=== PATIENT | female | born 1960 | race Caucasian/White ===

== ENCOUNTER 2016-09-07 09:54 | Day surgery (SDC) | payer BC ==
[2016-09-06 10:36] VITALS: BMI 27.3
--- NOTE | 2016-09-07 09:45 | HP ---
History & Physical Update - History History: No Change - Physical Physical: No Change - Assessment Assessment: No Change - Plan Plan: No Change
[2016-09-07] MEDS ORDERED: MIDAZOLAM HCL 2 MG/2 ML SINGLE DOSE VIAL ONE (11:53)
[2016-09-07] MEDS ORDERED: ceFAZolin SODIUM 1 GM VIAL ONE (11:53)
[2016-09-07] MEDS ORDERED: DEXAMETHASONE SOD PHOSPHATE 4 MG/1 ML VIAL ONE (11:53)
[2016-09-07] MEDS ORDERED: PROPOFOL 20 ML ONE ×2 (11:53→13:49)
[2016-09-07] MEDS ORDERED: SODIUM CHLORIDE 0.9% P/F 10 ML VIAL IJ ONE (11:53)
[2016-09-07] MEDS ORDERED: KETOROLAC TROMETHAMINE 30 MG/1 ML VIAL ONE (11:53)
[2016-09-07] MEDS ORDERED: ceFAZolin SODIUM 1 GM VIAL IVPB ONE (12:43)
[2016-09-07] MEDS ORDERED: GLYCOPYRROLATE 0.2 MG/1 ML VIAL ONE (13:26)
[2016-09-07] MEDS ORDERED: NEOSTIGMINE METHYLSULFATE 0.5 MG/ML - 10 ML MDV ONE (13:26)
[2016-09-07] MEDS ORDERED: BUPIVACAINE HCL/PF 0.5% (5MG/ML) 10 ML VIAL IJ ONE (13:55)
--- NOTE | 2016-09-07 14:21 | OP ---
Operative Note - Note: Operative Date: 09/07/16 Pre-Operative Diagnosis: Incarcerated ventral hernia. Operation: Repair of incarcerated ventral hernia with ventrolex lite mesh. Findings: Large 2.5 cm. defect below the umbilicus, with herniated omentum and fat. Post-Operative Diagnosis: Same as Pre-op Surgeon: Pat Spangler Anesthesiologist/MANAGER HIGHWAY: Clint Hernández Anesthesia: General (shun) Specimens Removed: Hernial sac with fat and omentum. Estimated Blood Loss (mls): 10 Operative Report Dictated: Yes
[2016-09-07] MEDS ORDERED: PROMETHAZINE HCL 25 MG/1 ML VIAL IVPUSH PRN (14:24)
[2016-09-07] MEDS ORDERED: oxyCODONE HCL 5 MG TABLET PO PRN (14:24)
[2016-09-07] MEDS ORDERED: ONDANSETRON 4 MG/2 ML VIAL IVPUSH PRN (14:24)
[2016-09-07] MEDS ORDERED: ONDANSETRON 4 MG/2 ML VIAL ONE (14:32)
[2016-09-07 15:47] VITALS: TEMP 99
--- NOTE | 2016-09-07 15:50 | OP ---
DATE OF OPERATION: 09/07/2016 PREOPERATIVE DIAGNOSIS: Incarcerated ventral hernia. PREOPERATIVE DIAGNOSIS: Incarcerated ventral hernia. OPERATIVE PROCEDURE: Repair of incarcerated ventral hernia with Ventralight mesh. SURGEON: Jorge Spangler MD ANESTHESIA: General anesthesia. OPERATIVE DESCRIPTION: This 56-year-old woman had a lump above the umbilicus which was painful. Patient was brought in for repair of the hernia. Risks, benefits, and complications were discussed with the patient. A vertical midline incision was made above and below the umbilicus. After time-out was called, patient was given 1 g of Ancef. The incision was deepened through the skin and subcutaneous tissue. The linea alba was defined above and below, 2 defects in the midline. This was fairly larger, greater than 2.5 cm in diameter. The subcutaneous fat and skin were beyond the edges of the defect circumferentially over the anterior rectus sheath above and below the umbilicus. The dissection was carried for up to 3-4 cm away from the edge of the defect. Once this was done, the defect was well defined, and there was a sac, which was wide, with omentum and fat within the sac. The sac was very well defined, open, and the sac was excised at the level of the abdominal wall. The specimen was sent to Pathology. The sac was then sutured with 3-0 Vicryl sutures. The peritoneum was then from the undersurface of the abdominal wall circumferentially on the defect for about 3-4 cm. Once this was done, Ventralight mesh of medium size, 6 cm in diameter, was introduced through the defect and placed in via the abdominal wall. This was anchored with 2-0 Prolene sutures in four corners, one above and below the defect, another on either side of the midline. The Prolene suture was passed through the abdominal wall about 2 cm away from the edge of the defect, brought through the defect, brought outwardly with the mesh through and through, and then was reintroduced through the defect and brought out through the abdominal wall. Four such sutures were obtained, one above the defect, another below the defect, and two others on either side of the defect. The Prolene suture was tied over the abdominal wall, holding the mesh on the undersurface of the abdominal wall. The knots were fastened on either side of the midline. The Prolene ribbon was then cut about 3 cm from the edge of the abdominal wall, and the Prolene suture holding the mesh on the undersurface of abdominal wall superiorly and inferiorly was brought through the ribbon, and the knot was fastened. Thus, the abdominal wall was sandwiched between the Prolene suture and the Prolene holding the mesh at the undersurface of the abdominal wall, and the Prolene ribbon over the abdominal wall. The defect was adequately repaired with enough overlay of Prolene beyond the edge of the defect. Additionally 3-0 Vicryl sutures were obtained holding the Prolene ribbon to the edge of the defect. The wound was irrigated. The subcutaneous fat was approximated with buried interrupted 3-0 Vicryl sutures. The umbilicus was brought down and sutured to the defect with interrupted 3-0 Vicryl sutures. The skin was approximated with continuous 4-0 Biosyn sutures in a running subcuticular fashion. Steri-Strips were placed across the incision, and sterile dressings were placed. Marcaine 0.5% was injected into the wound. Estimated blood loss was less than 10 mL. Patient tolerated the procedure well, was extubated and sent to the recovery room in satisfactory and stable condition. Rohit [id number]
[2016-09-07 16:33] VITALS: BP 127/84; PULSE 70
--- NOTE | 2016-09-11 13:45 | PATH ---
Surgical Pathology Report Patient Name: ANGELICA CARTAGENA [facility]. Rec. #: [id number] /Age/Gender: 1960 (Age: 56) / F Account: [id number] Location: [facility] SURGICAL Taken: 09/07/2016 Received: 09/10/2016 Reported: 09/11/2016 Physicians: Jorge Spangler M.D. Specimen(s) Received HERNIA SAC Clinical History Ventral hernia Final Diagnosis HERNIA SAC, VENTRAL HERNIA REPAIR: BENIGN FIBROMEMBRANOUS AND FIBROADIPOSE TISSUE CONSISTENT WITH HERNIA SAC. Electronically Signed Lui Ferguson M.D. Gross Description Received in formalin labeled "hernia sac" is a 3.7 x 2.5 x 2.0 cm bolaños-berg portion of fibromembranous tissue with attached fat, consistent with a hernia sac. Professional System Administrator sections are submitted in one cassette. /09/10/201609/10/2016
== END 2016-09-07 16:46 | disposition home or self-care (01) ==
LOC: JASU-SURG 09:54
PROVIDERS: ATTEND Specialist
PROC: 0WUF0JZ Supplement Abdominal Wall with Synthetic Substitute, Open Approach (ICD-10-PCS; principal; 2016-09-07 11:30)
DX: K43.6 Other and unspecified ventral hernia with obstruction, without gangrene (principal)
CPT/HCPCS: 88302-TC; 94760

== ENCOUNTER 2018-01-15 10:02 | Emergency (ER) | payer BC ==
[2018-01-15 10:14] VITALS: BP 145/69; PULSE 75; TEMP 98.6; BMI 26.7
[2018-01-15] MEDS ORDERED: KETOROLAC TROMETHAMINE 60 MG/2 ML VIAL IM ONE (11:20)
[2018-01-15] MEDS ORDERED: KETOROLAC TROMETHAMINE 60 MG/2 ML VIAL ONE (11:23)
--- NOTE | 2018-01-15 11:32 | PDOC ---
History of Present Illness - General Chief Complaint: Back Pain Stated Complaint: BACK PAIN Time Seen by Provider: 01/15/18 10:57 History Source: Patient - History of Present Illness Pain Location: reports: other (R gluteus) Past History - Past Medical History Allergies/Adverse Reactions: Allergies Allergy/AdvReac Type Severity Reaction Status Date / Time codeine [Codeine] Allergy Hives Verified 01/15/18 10:10 Sulfa (Sulfonamide Allergy Hives Verified 01/15/18 10:10 Antibiotics) [Sulfa(Sulfonamide Antibiotics)] CITRUS FRUITS, BANANAS Allergy Uncoded 01/15/18 10:10 Home Medications: Ambulatory Orders Cyclobenzaprine HCl [Flexeril -] 10 mg PO TID #9 tablet 01/15/18 Ibuprofen [Motrin -] 2 tab PO Q6H #30 tablet 01/15/18 Anemia: No Asthma: No Cancer: No Cardiac Disorders: No CVA: No COPD: No CHF: No Dementia: No Diabetes: No GI Disorders: No Disorders: No HTN: No Hypercholesterolemia: No Liver Disease: No Seizures: No Thyroid Disease: No - Surgical History Abdominal Surgery: No Appendectomy: No Cardiac Surgery: No Cholecystectomy: Yes (1986) Lung Surgery: No Neurologic Surgery: No Orthopedic Surgery: No - Immunization History Immunization Up to Date: Yes - Suicide/Smoking/Psychosocial Hx Smoking History: Never smoked Have you smoked in the past 12 months: Yes Number of Cigarettes Smoked Daily: 2 Information on smoking cessation initiated: No 'Breaking Loose' booklet given: 07/26/16 Hx Alcohol Use: No Drug/Substance Use Hx: No Substance Use Type: None, Marijuana Hx Substance Use Treatment: No Review of Systems - Review of Systems Constitutional: No: Chills, Fever Respiratory: No: Shortness of Breath Cardiac (ROS): No: Chest Pain ABD/GI: No: Nausea, Vomiting, Abdominal cramping : No: Burning, Flank Pain, Hematuria, Incontinence *Physical Exam - Vital Signs Last Vital Signs Temp Pulse Resp BP Pulse Ox 98.6 F 75 18 145/69 100 01/15/18 10:10 01/15/18 10:10 01/15/18 10:10 01/15/18 10:10 01/15/18 10:10 - Physical Exam General Appearance: Yes: Appropriately Dressed. No: Apparent Distress HEENT: positive: Normal Voice Neck: positive: Supple Respiratory/Chest: negative: Respiratory Distress Gastrointestinal/Abdominal: positive: Soft. negative: Tender, Pulsatile Mass Musculoskeletal: negative: CVA Tenderness Extremity: positive: Normal Inspection Integumentary: positive: Dry, Warm Neurologic: positive: Fully Oriented, Alert, Normal Mood/Affect Medical Decision Making - Medical Decision Making 01/15/18 11:24 58 yo F, smoker, here with persistent back pain that started while getting dressed for work this morning. Pain localized to right buttocks, unable to describe, 7 out of 10 and does not radiate. Took 500 mg Tylenol this a.m. with no relief. No history of similar pain in the past. No recent trauma or other obvious inciting factors. Denies any lower extremity sensory changes or weakness and no dysuria, hematuria, nausea, vomiting, fever or chills. No history of kidney stone. See exam R gluteus pain this am No trauma or infectious sxs Exam only remarkable for pain to site w/ weight bearing in ED Possibly MSK, strain, spasm, etc -pain control in ER and reassess 01/15/18 12:07 Reports feeling better with Toradol. DC with prescription for pain control and instructions to follow-up with PMD if symptoms persist and/or reoccurs *DC/Admit/Observation/Transfer Diagnosis at time of Disposition: Gluteal pain - Discharge Dispostion Condition at time of disposition: Improved - Prescriptions Prescriptions: Cyclobenzaprine HCl [Flexeril -] 10 mg PO TID #9 tablet Ibuprofen [Motrin -] 2 tab PO Q6H #30 tablet - Referrals - Patient Instructions Printed Discharge Instructions: Low Back Pain Additional Instructions: Take medications as prescribed. If pain persists and/or reoccurs, plase follow-up with your PMD for further evaluation - Post Discharge Activity Forms/Work/School Notes: Back to Work
== END 2018-01-15 12:10 | disposition home or self-care (01) ==
LOC: JERFT 10:02
PROC: 3E0233Z Introduction of Anti-inflammatory into Muscle, Percutaneous Approach (ICD-10-PCS; principal; 2018-01-15)
DX: M79.1 Myalgia (principal)
CPT/HCPCS: 99281-25

== ENCOUNTER 2019-02-04 03:58 | Emergency (ER) | payer BC, OTHER ==
[2019-02-04 05:14] VITALS: BMI 27.1
[2019-02-04] MEDS ORDERED: FAMOTIDINE 20 MG/50 ML IVPB 20 MG/50 ML MG IVPB ONE ×2 (05:20→05:25)
[2019-02-04] MEDS ORDERED: SODIUM CHLORIDE 1,000 ML IV STA (05:20)
[2019-02-04] MEDS ORDERED: MAG HYDROX/AL HYDROX/SIMETH 30 ML UNIT-DOSE CUP PO ONE (05:20)
[2019-02-04] MEDS ORDERED: ACETAMINOPHEN 1000 MG/100 ML VIAL (NON FORMULARY) IVPB ONE (05:20)
[2019-02-04] MEDS ORDERED: MAG HYDROX/AL HYDROX/SIMETH 30 ML UNIT-DOSE CUP ONE (05:25)
[2019-02-04] MEDS ORDERED: ACETAMINOPHEN INJECTION 100 ML IVPB ONE (05:25)
--- NOTE | 2019-02-04 05:37 | PDOC ---
History of Present Illness - General Chief Complaint: Pain Stated Complaint: ABD PAIN Time Seen by Provider: 02/04/19 05:03 History Source: Patient Exam Limitations: No Limitations - History of Present Illness Initial Comments: 02/04/19 07:11 59yo F with no significant PMH presenting to ED with complaints of LUQ discomfort that had been happening all day yesterday but seemed to have started concerning her around 10pm last night. Pt states she was watching TV and felt the discomfort. She also states that she feels more swollen on the LUQ. She has not had these symptoms before. Endorses some nausea. Patient said she returned from visiting her son in [place] by driving last week. Denies sob, chest pain, v/d, dizziness, leg swelling, pleuritic chest pain, headache, bloody stools, dysuria, fevers, chills, loss of appetite. Aunt had breast cancer, grandfather had stomach cancer. PMD: Brittney Gonzalez PMH: none PSH: hernia repair 2y ago Meds: none Allergies: codeine, sulfa Social: smokes 6 cigarettes/day, THC use, denies alcohol use Past History - Past Medical History Allergies/Adverse Reactions: Allergies Allergy/AdvReac Type Severity Reaction Status Date / Time codeine [Codeine] Allergy Hives Verified 01/15/18 10:10 Sulfa (Sulfonamide Allergy Hives Verified 01/15/18 10:10 Antibiotics) [Sulfa(Sulfonamide Antibiotics)] CITRUS FRUITS, BANANAS Allergy Uncoded 01/15/18 10:10 Home Medications: Ambulatory Orders Cyclobenzaprine HCl [Flexeril -] 10 mg PO TID #9 tablet 01/15/18 Ibuprofen [Motrin -] 2 tab PO Q6H #30 tablet 01/15/18 Anemia: No Asthma: No Cancer: No Cardiac Disorders: No CVA: No COPD: No CHF: No Dementia: No Diabetes: No GI Disorders: No Disorders: No HTN: No Hypercholesterolemia: No Liver Disease: No Seizures: No Thyroid Disease: No - Surgical History Abdominal Surgery: No Appendectomy: No Cardiac Surgery: No Cholecystectomy: Yes (1986) Lung Surgery: No Neurologic Surgery: No Orthopedic Surgery: No - Immunization History Immunization Up to Date: Yes - Suicide/Smoking/Psychosocial Hx Smoking History: Never smoked Have you smoked in the past 12 months: Yes Number of Cigarettes Smoked Daily: 2 Information on smoking cessation initiated: No 'Breaking Loose' booklet given: 07/26/16 Hx Alcohol Use: No Drug/Substance Use Hx: No Substance Use Type: None, Marijuana Hx Substance Use Treatment: No Review of Systems - Review of Systems Constitutional: No: Symptoms Reported HEENTM: No: Symptoms Reported Respiratory: No: Symptoms reported Cardiac (ROS): No: Symptoms Reported ABD/GI: Yes: See HPI, Nausea. No: Abdominal Distended, Constipated, Diarrhea, Rectal Bleeding, Vomiting : No: Symptoms Reported Musculoskeletal: No: Symptoms Reported Integumentary: No: Symptoms Reported Neurological: No: Symptoms reported *Physical Exam - Vital Signs Last Vital Signs Temp Pulse Resp BP Pulse Ox 98.1 F 83 19 112/83 98 02/04/19 05:03 02/04/19 05:03 02/04/19 05:03 02/04/19 05:03 02/04/19 05:03 - Physical Exam General Appearance: Yes: Nourished, Appropriately Dressed. No: Apparent Distress HEENT: positive: EOMI, WILBUR, Normal ENT Inspection Neck: positive: Trachea midline, Supple Respiratory/Chest: positive: Lungs Clear, Normal Breath Sounds. negative: Crackles, Rales, Stridor, Wheezing Cardiovascular: positive: Regular Rhythm, Regular Rate, S1, S2. negative: Edema , JVD, Murmur Vascular Pulses: Dorsalis-Pedis (R): 2+, Doralis-Pedis (L): 2+ Gastrointestinal/Abdominal: positive: Normal Bowel Sounds, Soft. negative: Tender Musculoskeletal: negative: CVA Tenderness Extremity: positive: Normal Capillary Refill. 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 Pt states she was watching TV and felt the discomfort. She also states that she feels more swollen on the LUQ. She has not had these symptoms before. Endorses some nausea. Patient said she returned from visiting her son in [place] by driving last week. Denies sob, chest pain, v/d, dizziness, leg swelling, pleuritic chest pain, headache, bloody stools, dysuria, fevers, chills, loss of appetite. Aunt had breast cancer, grandfather had stomach cancer. Vitals: wnl PE: benign. no abdominal tenderness, no masses, no splenomegaly. normal heart sounds, lungs cta ddx includes but not limited to atypical acs, gerd, mass/malignancy, pe, uti/ pyelo, ekg, labs including trop,lipase, ua/ucx cxr. will give fluids, zofran, pepcid, maalox, tylenol. cannot PERC however patient is hemodynamically stable. low suspicion for pe but will add d-dimer ekg: sinus at 73 pr 170, qtc 456. similar to ekg of 08/2016. no lisa or depressions. pending UA. Will r/o acs by getting second trop at 0840 with d-dimer. if negative pt can be dc home. will follow dimer and trop. signed out to morning team. *DC/Admit/Observation/Transfer Diagnosis at time of Disposition: Abdominal pain Qualifiers: Abdominal location: left upper quadrant Qualified Code(s): R10.12 - Left upper quadrant pain - Discharge Dispostion Condition at time of disposition: Good - Referrals Referrals: Lin Gonzalez MD [Primary Care Provider] - - Patient Instructions - Post Discharge Activity
[2019-02-04] MEDS ORDERED: ONDANSETRON 4 MG/2 ML VIAL IVPB ONE (05:38)
[2019-02-04 06:02] LABS: BASO % 1.1 % (0-2.0); EOS % 0.9 % (0-4.5); HEMOGLOBIN 13.5 GM/dL (10.7-15.3); LYMPH % 25.8 % (8-40); MCH 29.9 pg (25.7-33.7); MCHC 33.7 g/dl (32.0-36.0); MEAN CELL VOLUME 88.6 fl (80-96); MEAN PLT VOLUME 8.4 fl (7.5-11.1); MONO % 7.3 % (3.8-10.2); NEUT % 64.9 % (42.8-82.8); PLATELET COUNT 255 K/MM3 (134-434); RBC 4.52 M/mm3 (3.60-5.2)
[2019-02-04] MEDS ORDERED: ONDANSETRON 4 MG/2 ML VIAL ONE (06:04)
--- NOTE | 2019-02-04 06:16 | PDOC ---
Documentation entered by Jose Cooley SCRIBE, acting as scribe for Elizabeth Cox DO. Elizabeth Cox DO: This documentation has been prepared by the ángela, Jose Cooley SCRIBE, under my direction and personally reviewed by me in its entirety. I confirm that the documentation accurately reflects all work , treatment, procedures, and medical decision making performed by me. Attending Attestation - Resident Resident Name: Sada Handy - ED Attending Attestation I have performed the following: I have examined & evaluated the patient, The case was reviewed & discussed with the resident, I agree w/resident's findings & plan - HPI HPI: 02/04/19 05:32 Patient is a 59 year old female with no reported significant past medical history who presents to the ED with LUQ discomfort. Patient reports that her abdomen feels "swollen" abd was unable to sleep which prompted her visit to the ED. Allergies: Codeine, Sulfa, [place] Fruits, Bananas PCP: Dr. Gonzalez - Physicial Exam PE: 02/04/19 05:35 Agree with Resident's exam. - Medical Decision Making 02/04/19 20:57 59-year-old female with left lower rib cage pain Case signed out pending further labs and reevaluation to day shift
[2019-02-04 06:28] LABS: ALBUMIN 4.3 g/dl (3.4-5.0); BILIRUBIN,TOTAL 0.5 mg/dL (0.2-1); BLOOD UREA NITROGEN 11.9 mg/dL (7-18); CALCIUM 9.5 mg/dL (8.5-10.1); CREATININE 0.9 mg/dL (0.55-1.3); POTASSIUM 4.5 mmol/L (3.5-5.1); TOT PROT 8.3 g/dl (6.4-8.2)
[2019-02-04 06:48] LABS: LIPASE 82 U/L (73-393)
[2019-02-04 07:42] LABS: PH,URINE 8.5 (5.0-8.0); URINE APPEARANCE CLEAR; URINE BILIRUBIN NEGATIVE (NEGATIVE); URINE COLOR YELLOW; URINE GLUCOSE (UA) NEGATIVE (NEGATIVE); URINE KETONE NEGATIVE (NEGATIVE); URINE LEUK ESTERASE NEGATIVE (NEGATIVE); URINE NITRITE NEGATIVE (NEGATIVE); URINE PROTEIN NEGATIVE (NEGATIVE); URINE UROBILINOGEN 0.2 mg/dL (0.2-1.0)
[2019-02-04 07:52] VITALS: TEMP 98
--- NOTE | 2019-02-04 10:36 | PDOC ---
*Physical Exam - Vital Signs Last Vital Signs Temp Pulse Resp BP Pulse Ox 98.0 F 70 18 122/86 100 02/04/19 07:51 02/04/19 07:51 02/04/19 07:51 02/04/19 07:51 02/04/19 07:51 - Physical Exam Comments: 02/04/19 10:32 Patient endorsed to me by Dr. ramírez. Patient is a 59-year-old female who presented with atraumatic left upper quadrant/left subcostal discomfort. Patient 's EKG was noted to be without evidence of acute ischemia and is unchanged from previous. Serial cardiac enzymes within normal limit. D-dimer, age-adjusted is negative (as noted to be 518 but age-adjusted the cutoff would be 610). Patient' s symptoms are highly unlikely to be ACS related patient's heart score would be 1 for age. Patient safe for outpatient discharge with follow-up. 02/04/19 10:35 Serial abdominal exams reveal no focal tenderness. Patient tolerates by mouth. Will discharge. ED Treatment Course - LABORATORY CBC & Chemistry Diagram: 02/04/19 05:54 02/04/19 05:54 - ADDITIONAL ORDERS Additional order review: Laboratory Results 02/04/19 02/04/19 02/04/19 09:12 09:12 07:15 D-Dimer 518 H Sodium Potassium Chloride Carbon Dioxide Anion Gap BUN Creatinine Est GFR (CKD-EPI)AfAm Est GFR (CKD-EPI)NonAf Random Glucose Calcium Total Bilirubin AST ALT Alkaline Phosphatase Creatine Kinase 99 Troponin I < 0.02 Total Protein Albumin Lipase Urine Color Yellow Urine Appearance Clear Urine pH 8.5 H D Ur Specific [place] 1.005 L Urine Protein Negative Urine Glucose (UA) Negative Urine Ketones Negative Urine Blood Negative Urine Nitrite Negative Urine Bilirubin Negative Urine Urobilinogen 0.2 Ur Leukocyte Esterase Negative 02/04/19 02/04/19 05:54 05:54 D-Dimer Sodium 141 Potassium 4.5 Chloride 105 Carbon Dioxide 32 Anion Gap 4 L BUN 11.9 Creatinine 0.9 Est GFR (CKD-EPI)AfAm 79.98 Est GFR (CKD-EPI)NonAf 69.01 Random Glucose 102 Calcium 9.5 Total Bilirubin 0.5 AST 18 ALT 20 Alkaline Phosphatase 106 Creatine Kinase Troponin I < 0.02 Total Protein 8.3 H Albumin 4.3 Lipase 82 Urine Color Urine Appearance Urine pH Ur Specific [place] Urine Protein Urine Glucose (UA) Urine Ketones Urine Blood Urine Nitrite Urine Bilirubin Urine Urobilinogen Ur Leukocyte Esterase 02/04/19 05:54 RBC 4.52 MCV 88.6 MCHC 33.7 RDW 15.0 MPV 8.4 Neutrophils % 64.9 Lymphocytes % 25.8 D Monocytes % 7.3 Eosinophils % 0.9 Basophils % 1.1 - Medications Given in the ED: ED Medications Discontinued Medications Generic Name Dose Route Start Last Admin Trade Name Sabrina PRN Reason Stop Dose Admin Acetaminophen 1,000 mg 02/04/19 05:20 02/04/19 06:03 Ofirmev Injection - IVPB 02/04/19 05:21 Not Given ONCE ONE Al Hydroxide/Mg Hydroxide 30 ml 02/04/19 05:20 02/04/19 06:02 Mylanta Oral Suspension - PO 02/04/19 05:21 30 ml ONCE ONE Administration Famotidine/Sodium Chloride 20 mg in 50 mls @ 100 mls/hr 02/04/19 05:20 06:03 Pepcid 20 Mg Premixed Ivpb - IVPB 02/04/19 05:49 100 mls/hr ONCE ONE Administration Sodium Chloride 1,000 mls @ 1,000 mls/hr 02/04/19 05:20 02/04/19 06:02 Normal Saline - IV 02/04/19 06:19 1,000 mls/hr ASDIR STA Administration Ondansetron HCl 4 mg 02/04/19 05:38 02/04/19 06:03 Zofran Injection IVPB 02/04/19 05:39 4 mg ONCE ONE Administration *DC/Admit/Observation/Transfer Diagnosis at time of Disposition: Abdominal pain Qualifiers: Abdominal location: left upper quadrant Qualified Code(s): R10.12 - Left upper quadrant pain - Discharge Dispostion Disposition: HOME Condition at time of disposition: Stable - Referrals Referrals: Lin Gonzalez MD [Primary Care Provider] - - Patient Instructions Printed Discharge Instructions: DI for Abdominal Pain-Adult - Post Discharge Activity
[2019-02-04 10:44] LABS: PROTHROMBIN TIME (PATIENT) 11.8 SEC (9.7-13.0)
--- NOTE | 2019-02-04 10:51 | EKG ---
Test Reason : Blood Pressure : / mmHG Vent. Rate : 073 BPM Atrial Rate : 073 BPM P-R Int : 170 ms QRS Dur : 074 ms QT Int : 414 ms P-R-T Axes : 063 014 022 degrees QTc Int : 456 ms NORMAL SINUS RHYTHM WITH SINUS ARRHYTHMIA POSSIBLE LEFT ATRIAL ENLARGEMENT SEPTAL INFARCT (CITED ON OR BEFORE 16-NOV-2011) ABNORMAL ECG WHEN COMPARED WITH ECG OF 01-SEP-2016 12:51, NO SIGNIFICANT CHANGE WAS FOUND Confirmed by MARIE GOEL MD ([id number]) on 02/04/2019 10:50:42 AM Referred By: Confirmed By:MARIE GOEL MD
[2019-02-04 10:54] VITALS: BP 121/78; PULSE 78
== END 2019-02-04 10:54 | disposition home or self-care (01) ==
LOC: JER 03:58
PROC: 3E033GC Introduction of Other Therapeutic Substance into Peripheral Vein, Percutaneous Approach (ICD-10-PCS; principal; 2019-02-04)
PROC: 3E033GC Introduction of Other Therapeutic Substance into Peripheral Vein, Percutaneous Approach (ICD-10-PCS; 2019-02-04)
PROC: 3E0337Z Introduction of Electrolytic and Water Balance Substance into Peripheral Vein, Percutaneous Approach (ICD-10-PCS; 2019-02-04)
DX: R10.12 Left upper quadrant pain (principal)
CPT/HCPCS: 36415; 71045-TC-FY; 80053; 81003; 82550; 83690; 84484; 85025; 85379; 85610; 87086; 93005; 93010; 99285-25; J7030

== ENCOUNTER 2019-05-10 10:47 | Emergency (ER) | payer OTHER ==
[2019-05-10 10:56] VITALS: BP 134/79; PULSE 89; TEMP 98.4; BMI 27.1
--- NOTE | 2019-05-10 11:34 | PDOC ---
History of Present Illness - General Chief Complaint: Rash Stated Complaint: BUMP ON LT ARM Time Seen by Provider: 05/10/19 11:18 History Source: Patient - History of Present Illness Timing/Duration: reports: this morning Severity: Yes: mild Location: reports: extremities Past History - Past Medical History Allergies/Adverse Reactions: Allergies Allergy/AdvReac Type Severity Reaction Status Date / Time codeine [Codeine] Allergy Hives Verified 05/10/19 10:48 Sulfa (Sulfonamide Allergy Hives Verified 05/10/19 10:48 Antibiotics) [Sulfa(Sulfonamide Antibiotics)] CITRUS FRUITS, BANANAS Allergy Uncoded 05/10/19 10:48 Home Medications: Ambulatory Orders Cyclobenzaprine HCl [Flexeril -] 10 mg PO TID #9 tablet 01/15/18 Ibuprofen [Motrin -] 2 tab PO Q6H #30 tablet 01/15/18 Anemia: No Asthma: No Cancer: No Cardiac Disorders: No CVA: No COPD: No CHF: No Dementia: No Diabetes: No GI Disorders: No Disorders: No HTN: No Hypercholesterolemia: No Liver Disease: No Seizures: No Thyroid Disease: No - Surgical History Abdominal Surgery: No Appendectomy: No Cardiac Surgery: No Cholecystectomy: Yes (1986) Lung Surgery: No Neurologic Surgery: No Orthopedic Surgery: No - Immunization History Immunization Up to Date: Yes - Psycho Social/Smoking Cessation Hx Smoking History: Current every day smoker Have you smoked in the past 12 months: Yes Number of Cigarettes Smoked Daily: 0 If you are a former smoker, when did you quit?: 3 mths ago Information on smoking cessation initiated: Yes 'Breaking Loose' booklet given: 07/26/16 Hx Alcohol Use: No Drug/Substance Use Hx: Yes Substance Use Type: None, Marijuana Hx Substance Use Treatment: No Review of Systems - Review of Systems Constitutional: No: Chills, Fever Integumentary: Yes: Pruritus, Rash *Physical Exam - Vital Signs Last Vital Signs Temp Pulse Resp BP Pulse Ox 98.4 F 89 16 134/79 98 05/10/19 10:50 05/10/19 10:50 05/10/19 10:50 05/10/19 10:50 05/10/19 10:50 - Physical Exam General Appearance: Yes: Appropriately Dressed. No: Apparent Distress HEENT: positive: Normal Voice Neck: positive: Supple Respiratory/Chest: negative: Respiratory Distress Integumentary: positive: Dry, Warm, Rash (multiple, pinpoint, erythematous, nondescript macules to antecub fossa of LUE, no hand/finger involvement) Neurologic: positive: Fully Oriented, Alert, Normal Mood/Affect Medical Decision Making - Medical Decision Making 05/10/19 13:15 59-year-old female, history of psoriasis, here with pruritic rash to LUE that patient noticed this a.m. No obvious inciting factors. Rash is not consistent with her psoriasis. Has been applying hydrocortisone to site which does relieve itching. see exam Nonspecific dermatitis DC to continue hydrocortisone for itch Derm f/u if no improvement Discharge - Discharge Information Problems reviewed: Yes Clinical Impression/Diagnosis: Rash and nonspecific skin eruption Condition: Good Disposition: HOME - Follow up/Referral Referrals: Lin Gonzalez MD [Primary Care Provider] - - Patient Discharge Instructions Patient Printed Discharge Instructions: DI for Rash Additional Instructions: The cause of your rash is unclear at this time but does not appear to be serious. You can use topical Benadryl on site for itching Please return for worsening of symptoms - Post Discharge Activity
== END 2019-05-10 11:37 | disposition home or self-care (01) ==
LOC: JERFT 10:47
DX: L40.9 Psoriasis, unspecified (principal); Z91.018 Allergy to other foods; Z88.2 Allergy status to sulfonamides; Z88.5 Allergy status to narcotic agent
CPT/HCPCS: 99281-25

== ENCOUNTER 2020-08-24 12:06 | Emergency (ER) | payer OTHER ==
[2020-08-24 12:13] VITALS: BP 153/93; PULSE 96; TEMP 98.3; BMI 27.8
[2020-08-24] MEDS ORDERED: IBUPROFEN 600 MG TABLET (FP) PO ONE ×2 (13:39→13:59)
[2020-08-24 14:03] LABS: BASO % 1.3 % (0-2.0); HEMATOCRIT 40.3 % (32.4-45.2); HEMOGLOBIN 13.6 GM/dL (10.7-15.3); LYMPH % 31.8 % (8-40); MCH 29.7 pg (25.7-33.7); MCHC 33.8 g/dl (32.0-36.0); MEAN CELL VOLUME 87.8 fl (80-96); MEAN PLT VOLUME 8.5 fl (7.5-11.1); MONO % 6.9 % (3.8-10.2); PLATELET COUNT 250 K/MM3 (134-434); RBC 4.59 M/mm3 (3.60-5.2); RDW 14.7 % (11.6-15.6)
[2020-08-24 14:42] LABS: ALBUMIN 4.2 g/dl (3.4-5.0); BLOOD UREA NITROGEN 9.9 mg/dL (7-18); CALCIUM 9.8 mg/dL (8.5-10.1)
[2020-08-24 14:46] LABS: CREATININE 0.8 mg/dL (0.55-1.3)
[2020-08-24 14:47] LABS: BILIRUBIN,TOTAL 0.4 mg/dL (0.2-1); TOT PROT 8.3 g/dl (6.4-8.2)
== END 2020-08-24 15:29 | disposition home or self-care (01) ==
LOC: JER 12:06
DX: M79.601 Pain in right arm (principal); R20.2 Paresthesia of skin
CPT/HCPCS: 36415; 80053; 85025; 99284-25

== ENCOUNTER 2021-04-27 13:28 | Emergency (ER) | payer OTHER ==
[2021-04-27 13:46] VITALS: BP 132/96; PULSE 86; TEMP 98.5; BMI 26.0
[2021-04-27 15:21] LABS: BASO % 1.2 % (0-2.0); EOS % 2.1 % (0-4.5); HEMATOCRIT 36.8 % (32.4-45.2); HEMOGLOBIN 12.6 GM/dL (10.7-15.3); MCH 29.7 pg (25.7-33.7); MCHC 34.2 g/dl (32.0-36.0); MEAN CELL VOLUME 86.7 fl (80-96); MEAN PLT VOLUME 7.9 fl (7.5-11.1); MONO % 8.3 % (3.8-10.2); NEUT % 50.4 % (42.8-82.8); PLATELET COUNT 231 10^3/uL (134-434); RBC 4.25 M/mm3 (3.60-5.2); RDW 14.3 % (11.6-15.6)
[2021-04-27 15:36] LABS: ALBUMIN 3.8 g/dl (3.4-5.0); BLOOD UREA NITROGEN 8.7 mg/dL (7-18); CALCIUM 9.4 mg/dL (8.5-10.1)
[2021-04-27 15:38] LABS: MAGNESIUM 2.2 mg/dL (1.8-2.4)
[2021-04-27 15:39] LABS: CREATININE 0.8 mg/dL (0.55-1.3); PHOSPHOROUS 2.7 mg/dL (2.5-4.9)
[2021-04-27 15:41] LABS: BILIRUBIN,TOTAL 0.3 mg/dL (0.2-1)
== END 2021-04-27 16:09 | disposition home or self-care (01) ==
LOC: JER 13:28
DX: R20.2 Paresthesia of skin (principal)
CPT/HCPCS: 36415; 80053; 83735; 84100; 85025; 99283-25

== ENCOUNTER 2021-08-30 12:13 | Emergency (ER) | payer OTHER ==
[2021-08-30 12:42] VITALS: BP 156/70; PULSE 78; TEMP 99.2; BMI 27.6
[2021-08-30] MEDS ORDERED: LIDOCAINE 5% TOPICAL PATCH TP ONE (13:23)
[2021-08-30] MEDS ORDERED: KETOROLAC TROMETHAMINE 15 MG/ML VIAL IM ONE (13:23)
[2021-08-30] MEDS ORDERED: LIDOCAINE 5% TOPICAL PATCH ONE (13:32)
[2021-08-30] MEDS ORDERED: KETOROLAC TROMETHAMINE 15 MG/ML VIAL ONE (13:32)
[2021-08-30] MEDS ORDERED: LIDOCAINE PATCH REMOVAL MC SCH (22:00)
== END 2021-08-30 13:41 | disposition home or self-care (01) ==
LOC: JERFT 12:13
PROC: 3E023GC Introduction of Other Therapeutic Substance into Muscle, Percutaneous Approach (ICD-10-PCS; principal; 2021-08-30)
DX: M62.830 Muscle spasm of back (principal)
CPT/HCPCS: 99284-25